=== PATIENT | female | born 1975 | race Caucasian/White ===

== ENCOUNTER 2017-11-12 11:41 | Emergency (ER) | payer BC ==
[~2017-11-12] VITALS: Ht 167.6 cm; Wt 113.4 kg
[~2017-11-12 11:41] MED LIST: AMYTRIPTILINE; GABAPENTIN
[2017-11-12 12:00] VITALS: BP_SYST 149
[2017-11-12] MEDS ORDERED: NACL 0.9% 1,000 ML IV ONE (12:11)
[2017-11-12] MEDS ORDERED: KETOROLAC TROMETHAMINE 30 MG VIAL IVP ONE (12:15)
[2017-11-12] MEDS ORDERED: MORPHINE 4 MG/ML INJ. SYRINGE IVP ONE (12:15)
[2017-11-12 12:21] LABS: BILIRUBIN,URINE NEGATIVE (NEGATIVE); BLOOD, URINE 2+ (NEGATIVE); CLARITY/URINE CLEAR (CLEAR); COLOR,URINE YELLOW (YELLOW); GLUCOSE,URINE NEGATIVE (NEGATIVE); KETONES,URINE NEGATIVE (NEGATIVE); LEUKOCYTE ESTERASE ,URINE NEGATIVE (NEGATIVE); NITRITE, URINE NEGATIVE (NEGATIVE); PROTEIN URINE NEGATIVE (NEGATIVE); UROBILINOGEN,URINE 0.2 (0.2-1.0)
[2017-11-12 12:38] LABS: BACTERIA,URINE FEW /HPF (None Seen); MUCUS,URINE 1+ /LPF (None Seen); WBC,URINE 0-3 /HPF (0-3)
[2017-11-12 12:38] LABS: BASOPHILS # (AUTO) 0.1 K/uL (0.0-0.2); BASOPHILS % (AUTO) 0.9 % (0.0-2.0); EOSINOPHILS # (AUTO) 0.2 K/uL (0.0-0.4); EOSINOPHILS % (AUTO) 2.1 % (0.0-4.0); HEMATOCRIT 46.8 % (36-48); HEMOGLOBIN 15.8 g/dL (12.0-16.0); LYMPHOCYTES % (AUTO) 36.8 % (20.5-51.5); MEAN CORPUSCULAR HEMOGLOBIN 29 pg (27-31); MEAN CORPUSCULAR HGB CONC 34 % (32-36); MEAN CORPUSCULAR VOLUME 86 fL (79.0-98.0); MONOCYTES # (AUTO) 0.6 K/uL (0.0-1.0); NEUTROPHILS # (AUTO) 4.1 K/uL (1.8-7.7); NEUTROPHILS % (AUTO) 53.2 % (40.0-70.0); PLATELET COUNT (AUTO) 221 K/uL (130-430); RED BLOOD CELL COUNT(AUTO) 5.43 MIL/uL (4.2-6.2); RED CELL DISTRIBUTION WIDTH 13.1 % (9.0-15.0)
[2017-11-12 12:50] LABS: CREATININE 0.74 mg/dL (0.55-1.30); POTASSIUM 4.3 mmol/L (3.5-5.1)
[2017-11-12 12:54] LABS: ALBUMIN 3.6 g/dL (3.4-4.8); TOTAL BILIRUBIN 0.3 mg/dL (0.0-1.0)
[2017-11-12 15:02] VITALS: BP_SYST 148
== END 2017-11-12 15:02 | disposition home or self-care (01) ==
LOC: SED 11:41
DX: R10.9 Unspecified abdominal pain (principal); N20.0 Calculus of kidney; R03.0 Elevated blood-pressure reading, without diagnosis of hypertension; Z90.49 Acquired absence of other specified parts of digestive tract
CPT/HCPCS: 36415; 71045; 74176; 80053; 81000; 81025; 82550; 83690; 84484; 85025; 85610; 85730; 93005; 96361; 96374; 96375; 99285; J1885; J2270; J7030

== ENCOUNTER 2018-03-11 13:01 | Emergency (ER) | payer BC ==
[~2018-03-11] VITALS: Ht 167.6 cm; Wt 127.0 kg
[2018-03-11 13:09] VITALS: BP_SYST 143
[2018-03-11 13:52] LABS: BILIRUBIN,URINE NEGATIVE (NEGATIVE); BLOOD, URINE NEGATIVE (NEGATIVE); CLARITY/URINE HAZY (CLEAR); COLOR,URINE YELLOW (YELLOW); GLUCOSE,URINE NEGATIVE (NEGATIVE); KETONES,URINE NEGATIVE (NEGATIVE); LEUKOCYTE ESTERASE ,URINE NEGATIVE (NEGATIVE); NITRITE, URINE NEGATIVE (NEGATIVE); PROTEIN URINE NEGATIVE (NEGATIVE); UROBILINOGEN,URINE 0.2 (0.2-1.0)
--- NOTE | 2018-03-11 14:30 | NUR ---
Placed in room 4. To gown for exam. Side rails up.
--- NOTE | 2018-03-11 14:50 | NUR ---
Pt presents to ER c/o L flank pain 7/10 on pain scale and dysuria. Pt denies any other symptoms. Pt in no acute distress, speaking full sentences, respirations even and unlabored, AOX4, ambulatory. - chest pain, - sob, - nausea, - vomiting
--- NOTE | 2018-03-11 15:05 | NUR ---
ROBE Escobedo at bedside examining patient.
[2018-03-11] MEDS ORDERED: KETOROLAC TROMETHAMINE 30 MG VIAL IM ONE (15:15)
--- NOTE | 2018-03-11 15:19 | NUR ---
Pt medicated as ordered by Bogdan CAPUTO. Pt tolerated well; will continue to monitor.
[2018-03-11 15:33] LABS: BASOPHILS # (AUTO) 0.2 K/uL (0.0-0.2); BASOPHILS % (AUTO) 1.7 % (0.0-2.0); EOSINOPHILS # (AUTO) 0.2 K/uL (0.0-0.4); EOSINOPHILS % (AUTO) 2.2 % (0.0-4.0); HEMATOCRIT 46.4 % (36-48); HEMOGLOBIN 15.4 g/dL (12.0-16.0); LYMPHOCYTES # (AUTO) 3.4 K/uL (1.0-5.5); LYMPHOCYTES % (AUTO) 35.9 % (20.5-51.5); MEAN CORPUSCULAR HEMOGLOBIN 29 pg (27-31); MEAN CORPUSCULAR HGB CONC 33 % (32-36); MEAN CORPUSCULAR VOLUME 88 fL (79.0-98.0); MONOCYTES # (AUTO) 0.6 K/uL (0.0-1.0); MONOCYTES % (AUTO) 6.7 % (1.7-9.3); NEUTROPHILS % (AUTO) 53.5 % (40.0-70.0); PLATELET COUNT (AUTO) 218 K/uL (130-430); RED BLOOD CELL COUNT(AUTO) 5.28 MIL/uL (4.2-6.2); RED CELL DISTRIBUTION WIDTH 12.9 % (9.0-15.0); WHITE BLOOD COUNT (AUTO) 9.4 K/uL (4.8-10.8)
[2018-03-11 15:39] LABS: CALCIUM 9.3 mg/dL (8.4-11.0); CREATININE 0.64 mg/dL (0.55-1.30); POTASSIUM 4.1 mmol/L (3.5-5.1)
[2018-03-11 15:44] LABS: ALBUMIN 3.7 g/dL (3.4-4.8); TOTAL BILIRUBIN 0.4 mg/dL (0.0-1.0)
--- NOTE | 2018-03-11 15:50 | NUR ---
Ultrasound at bedside.
--- NOTE | 2018-03-11 16:30 | NUR ---
Pt resting on gurney, no signs of distress, will continue to monitor.
--- NOTE | 2018-03-11 16:45 | NUR ---
ROBE Escobedo at bedside speaking with pt and family.
--- NOTE | 2018-03-11 17:05 | NUR ---
Pt left prior to discharge instructions and Rx given. Bogdan CAPUTO notified and aware of situation. Attempted to contact and emergency contacts listed on pt's chart but no answer.
== END 2018-03-11 17:05 | disposition home or self-care (01) ==
LOC: SED 13:01
DX: R10.9 Unspecified abdominal pain (principal); R03.0 Elevated blood-pressure reading, without diagnosis of hypertension; Z90.49 Acquired absence of other specified parts of digestive tract
CPT/HCPCS: 36415; 76770; 80053; 81003; 85025; 87086; 96372; 99285; J1885; 87186-TC

== ENCOUNTER 2018-10-19 12:35 | Emergency (ER) | payer BC ==
[~2018-10-19] VITALS: Ht 167.6 cm; Wt 113.4 kg
[2018-10-19 12:47] VITALS: BP_SYST 144
[2018-10-19 13:21] LABS: BASOPHILS # (AUTO) 0.1 K/uL (0.0-0.2); EOSINOPHILS # (AUTO) 0.2 K/uL (0.0-0.4); EOSINOPHILS % (AUTO) 1.9 % (0.0-4.0); HEMATOCRIT 44.9 % (36-48); HEMOGLOBIN 15.2 g/dL (12.0-16.0); LYMPHOCYTES # (AUTO) 2.8 K/uL (1.0-5.5); LYMPHOCYTES % (AUTO) 33.2 % (20.5-51.5); MEAN CORPUSCULAR HEMOGLOBIN 30 pg (27-31); MEAN CORPUSCULAR HGB CONC 34 % (32-36); MEAN CORPUSCULAR VOLUME 87 fL (79.0-98.0); MONOCYTES # (AUTO) 0.6 K/uL (0.0-1.0); MONOCYTES % (AUTO) 6.7 % (1.7-9.3); NEUTROPHILS # (AUTO) 4.8 K/uL (1.8-7.7); NEUTROPHILS % (AUTO) 57.2 % (40.0-70.0); PLATELET COUNT (AUTO) 205 K/uL (130-430); RED BLOOD CELL COUNT(AUTO) 5.15 MIL/uL (4.2-6.2); RED CELL DISTRIBUTION WIDTH 13.7 % (9.0-15.0); WHITE BLOOD COUNT (AUTO) 8.5 K/uL (4.8-10.8)
[2018-10-19 13:43] LABS: ANION GAP 8 (5-15); CALCIUM 8.8 mg/dL (8.4-11.0); CHLORIDE 105 mmol/L (98-107); CREATININE 0.83 mg/dL (0.55-1.30); GLUCOSE 120 mg/dL (70-99); POTASSIUM 3.9 mmol/L (3.5-5.1); SODIUM SERUM 138 mmol/L (136-145); UREA NITROGEN, BLOOD 11 mg/dL (8-21)
[2018-10-19 13:49] LABS: GFR AFRICAN AMERICAN 96 mL/min (>90)
[2018-10-19 13:57] LABS: ALANINE AMINOTRANSFERASE 91 U/L (12-78); ALBUMIN 3.4 g/dL (3.4-4.8); ASPARTATE AMINOTRANSFERASE 46 U/L (10-37); TOTAL BILIRUBIN 0.6 mg/dL (0.0-1.0)
[2018-10-19 14:13] LABS: PROTHROMBIN TIME 9.8 SECS (9.5-12.5)
--- NOTE | 2018-10-19 15:16 | NUR ---
Called patient x1 , no answer
--- NOTE | 2018-10-19 15:30 | NUR ---
Called for patient, unable to locate.
--- NOTE | 2018-10-19 15:45 | NUR ---
Called for patient, unable to locate. Patient presumed to have left without been seen.
== END 2018-10-19 15:45 | disposition left against medical advice (07) ==
LOC: SED 12:35
DX: R07.89 Other chest pain (principal); Z53.21 Procedure and treatment not carried out due to patient leaving prior to being seen by health care provider
CPT/HCPCS: 36415; 71046-TC; 80053; 84484; 85025; 85610-TC; 85730-TC; 93005; 99281

== ENCOUNTER 2018-10-19 19:15 | Emergency (ER) | payer BC ==
[~2018-10-19] VITALS: Ht 167.6 cm; Wt 113.4 kg
[2018-10-19 19:18] VITALS: BP_SYST 153
--- NOTE | 2018-10-19 19:20 | NUR ---
Patient to ER bed 06 to gown for evaluation. Side rails up.
--- NOTE | 2018-10-19 19:33 | NUR ---
Pt C/O substernal chest pain radiating to the left breast and to the back, worsening on inspiration as well as shortness of breath since yesterday. Pt states sudden onset of chest pain no trauma noted, denies N/V/D or any recent sickness. Was seen earlier today but left without being seen by MD. Will continue to monitor
--- NOTE | 2018-10-19 19:53 | NUR ---
ROBE Chaves at bedside examining patient.
[2018-10-19] MEDS ORDERED: KETOROLAC TROMETHAMINE 30 MG VIAL IM ONE (20:45)
--- NOTE | 2018-10-19 21:18 | NUR ---
Pt has been medication with Toradol IM for 8/10 chest pain. Urine Preg is negative. Will continue to monitor
[2018-10-19 21:50] VITALS: BP_SYST 153
--- NOTE | 2018-10-19 21:50 | NUR ---
Pt left without discharge paperwork. Given verbal discharge instructions by Dr. Chaves
== END 2018-10-19 21:50 | disposition home or self-care (01) ==
LOC: SED 19:15
DX: M94.0 Chondrocostal junction syndrome [Tietze] (principal); Z53.20 Procedure and treatment not carried out because of patient's decision for unspecified reasons; Z87.442 Personal history of urinary calculi
CPT/HCPCS: 36415; 81025; 84484; 96372; 99283; J1885

== ENCOUNTER 2021-03-14 16:14 | Emergency (ER) | payer BC ==
[~2021-03-14] VITALS: Ht 167.6 cm; Wt 113.4 kg
[2021-03-14 16:15] VITALS: BP_SYST 144
[2021-03-14] MEDS ORDERED: KETOROLAC TROMETHAMINE 60 MG/2 ML VIAL IM ONE (16:30)
[2021-03-14 17:17] LABS: CREATININE 0.93 mg/dL (0.55-1.30); POTASSIUM 3.8 mmol/L (3.5-5.1)
[2021-03-14 17:19] LABS: HEMATOCRIT 42.2 % (36-48); HEMOGLOBIN 14.5 g/dL (12.0-16.0); MEAN CORPUSCULAR HEMOGLOBIN 30 pg (27-31); MEAN CORPUSCULAR VOLUME 88 fL (79.0-98.0); RED BLOOD CELL COUNT(AUTO) 4.82 MIL/uL (4.2-6.2); WHITE BLOOD COUNT (AUTO) 9.5 K/uL (4.8-10.8)
[2021-03-14 17:20] LABS: ALBUMIN 3.3 g/dL (3.4-4.8); BASOPHILS % (AUTO) 3.7 % (0.0-2.0); EOSINOPHILS % (AUTO) 1.4 % (0.0-4.0); LYMPHOCYTES % (AUTO) 27.2 % (20.5-51.5); MEAN CORPUSCULAR HGB CONC 34 % (32-36); MONOCYTES % (AUTO) 8.4 % (1.7-9.3); NEUTROPHILS % (AUTO) 59.3 % (40.0-70.0); PLATELET COUNT (AUTO) 178 K/uL (130-430); RED CELL DISTRIBUTION WIDTH 13.7 % (9.0-15.0); TOTAL BILIRUBIN 0.3 mg/dL (0.0-1.0)
[2021-03-14 17:21] LABS: BASOPHILS # (AUTO) 0.3 K/uL (0.0-0.2); EOSINOPHILS # (AUTO) 0.1 K/uL (0.0-0.4); LYMPHOCYTES # (AUTO) 2.6 K/uL (1.0-5.5); MONOCYTES # (AUTO) 0.8 K/uL (0.0-1.0); NEUTROPHILS # (AUTO) 5.6 K/uL (1.8-7.7)
[2021-03-14 17:23] LABS: INR 0.9 (0.8-1.2); PROTHROMBIN TIME 9.9 SECS (9.5-12.5)
[2021-03-14] MEDS ORDERED: MORPHINE 4 MG INJ. 4 MG/ML VIAL IM ONE (17:30)
[2021-03-14 17:37] LABS: C-REACTIVE PROTEIN QUANT 0.6 mg/dL (0-0.5)
[2021-03-14 17:41] LABS: BILIRUBIN,URINE NEGATIVE (NEGATIVE); BLOOD, URINE NEGATIVE (NEGATIVE); COLOR,URINE YELLOW (YELLOW); GLUCOSE,URINE NEGATIVE (NEGATIVE); KETONES,URINE NEGATIVE (NEGATIVE); LEUKOCYTE ESTERASE ,URINE NEGATIVE (NEGATIVE); NITRITE, URINE NEGATIVE (NEGATIVE); PROTEIN URINE NEGATIVE (NEGATIVE); UROBILINOGEN,URINE 0.2 (0.2-1.0)
[2021-03-14 18:16] LABS: CLARITY/URINE SLIGHTLY HAZY (CLEAR)
[2021-03-14] MEDS ORDERED: HYDR-3917 PO (18:59)
[2021-03-14] MEDS ORDERED: IBUP-1971 PO (18:59)
[2021-03-14 19:05] VITALS: BP_SYST 137
== END 2021-03-14 19:05 | disposition home or self-care (01) ==
LOC: SED 16:14
DX: R10.9 Unspecified abdominal pain (principal)
CPT/HCPCS: 36415; 74176; 76376; 80053; 81003; 81025; 82150; 83690; 84703; 85025; 85610; 85730; 86140; 96372; 99284; J1885; J2270

== ENCOUNTER 2021-05-13 13:01 | Emergency (ER) | payer BC ==
[~2021-05-13] VITALS: Ht 167.6 cm; Wt 131.5 kg
[2021-05-13 13:01] VITALS: BP_SYST 147
[~2021-05-13 13:01] MED LIST changes: +HYDR-3917 PO; +IBUP-1971 PO
--- NOTE | 2021-05-13 13:01 | NUR ---
BROUGHT BACK TO BED #8 AND TRIAGED, REPORT GIVEN TO BRENNAN
--- NOTE | 2021-05-13 13:05 | NUR ---
Pt walked in to ER with c/o abdominal pain 10/ ever since she hurt her back last month. States she feels "burning and tearing". Denies any fevers, n/v at this time. V/S stable, no acute distress noted.
--- NOTE | 2021-05-13 13:15 | NUR ---
ER Dr. Horn at bedside examining patient.
[2021-05-13] MEDS ORDERED: KETOROLAC TROMETHAMINE 60 MG/2 ML VIAL IM ONE ×2 (13:29→13:30)
[2021-05-13] MEDS ORDERED: HYDROcodone/ACETAMIN 10-325 MG TAB PO ONE (13:30)
--- NOTE | 2021-05-13 13:40 | NUR ---
Patient transported to radiology via wheelchair, accompanied by staff.
[2021-05-13 13:54] LABS: BILIRUBIN,URINE NEGATIVE (NEGATIVE); BLOOD, URINE NEGATIVE (NEGATIVE); CLARITY/URINE CLEAR (CLEAR); COLOR,URINE YELLOW (YELLOW); GLUCOSE,URINE NEGATIVE (NEGATIVE); KETONES,URINE NEGATIVE (NEGATIVE); LEUKOCYTE ESTERASE ,URINE NEGATIVE (NEGATIVE); NITRITE, URINE NEGATIVE (NEGATIVE); PROTEIN URINE NEGATIVE (NEGATIVE); UROBILINOGEN,URINE 0.2 (0.2-1.0)
[2021-05-13 14:00] LABS: BASOPHILS # (AUTO) 0.1 K/uL (0.0-0.2); BASOPHILS % (AUTO) 0.7 % (0.0-2.0); EOSINOPHILS # (AUTO) 0.1 K/uL (0.0-0.4); EOSINOPHILS % (AUTO) 1.6 % (0.0-4.0); HEMATOCRIT 42.8 % (36-48); HEMOGLOBIN 14.7 g/dL (12.0-16.0); LYMPHOCYTES # (AUTO) 2.8 K/uL (1.0-5.5); LYMPHOCYTES % (AUTO) 36.5 % (20.5-51.5); MEAN CORPUSCULAR HEMOGLOBIN 30 pg (27-31); MEAN CORPUSCULAR HGB CONC 34 % (32-36); MEAN CORPUSCULAR VOLUME 87 fL (79.0-98.0); MONOCYTES # (AUTO) 0.5 K/uL (0.0-1.0); MONOCYTES % (AUTO) 6.7 % (1.7-9.3); NEUTROPHILS # (AUTO) 4.2 K/uL (1.8-7.7); NEUTROPHILS % (AUTO) 54.5 % (40.0-70.0); PLATELET COUNT (AUTO) 170 K/uL (130-430); RED BLOOD CELL COUNT(AUTO) 4.94 MIL/uL (4.2-6.2); RED CELL DISTRIBUTION WIDTH 14.1 % (9.0-15.0); WHITE BLOOD COUNT (AUTO) 7.7 K/uL (4.8-10.8)
[2021-05-13 14:01] LABS: CALCIUM 8.2 mg/dL (8.4-11.0); CREATININE 0.81 mg/dL (0.55-1.30); POTASSIUM 3.9 mmol/L (3.5-5.1)
[2021-05-13 14:04] LABS: INR 0.9 (0.8-1.2); PROTHROMBIN TIME 9.8 SECS (9.5-12.5)
[2021-05-13 14:06] LABS: ALBUMIN 3.4 g/dL (3.4-4.8); C-REACTIVE PROTEIN QUANT 0.4 mg/dL (0-0.5); TOTAL BILIRUBIN 0.2 mg/dL (0.0-1.0)
--- NOTE | 2021-05-13 16:00 | NUR ---
Ultrasound at bedside
[2021-05-13] MEDS ORDERED: PRED20TA PO (16:07)
[2021-05-13] MEDS ORDERED: LACT10SO6 PO (16:13)
[2021-05-13] MEDS ORDERED: POLY119P2 PO (16:13)
[2021-05-13] MEDS ORDERED: DOCU-159 PO (16:13)
[2021-05-13] MEDS ORDERED: predniSONE 20 MG TABLET PO ONE (18:00)
--- NOTE | 2021-05-13 18:00 | NUR ---
Patient given written and verbal discharge instructions and verbalizes understanding. ER MD discussed with patient the results and treatment provided. Patient in stable condition. ID arm band removed. Rx of Prednisone, colace, lactulose and miralax given. Patient educated on pain management and to follow up with PMD. Pain Scale 0. Opportunity for questions provided and answered. Medication side effect fact sheet provided.
[2021-05-13 18:03] VITALS: BP_SYST 147
== END 2021-05-13 18:00 | disposition home or self-care (01) ==
LOC: SED 13:01
DX: N83.8 Other noninflammatory disorders of ovary, fallopian tube and broad ligament (principal); Z79.899 Other long term (current) drug therapy
CPT/HCPCS: 36415; 72131; 74176; 76376; 76830; 76857; 80053; 81003; 81025; 82150; 83605; 83690; 84703; 85025; 85610; 85730; 86140; 96372; 99284; J1885; J7512

== ENCOUNTER 2021-10-08 14:13 | Emergency (ER) | payer BC ==
[~2021-10-08] VITALS: Ht 167.6 cm; Wt 127.0 kg
[~2021-10-08 14:13] MED LIST changes: +DOCU-159 PO; +LACT10SO6 PO; +POLY119P2 PO; +PRED20TA PO
[2021-10-08 14:15] VITALS: BP_SYST 136
--- NOTE | 2021-10-08 14:30 | NUR ---
First contact with pt. Pt has cc of lower abdominal pain and frequent urine accompanied by fever, chills, and aches. Pt states that she was previously diagnosed with a urine infection and was given ciprofloxacin. Pt edorsed finishing medications but notes that she has had no relief fro symptoms. Pt is AxO x4, GCS 15, skin is pink, warm, and dry. Resp e/u, NADN. Awaiting evaluation anf furhter orders.
[2021-10-08] MEDS ORDERED: KETOROLAC TROMETHAMINE 60 MG/2 ML VIAL IM ONE (14:45)
[2021-10-08 14:49] VITALS: BP_SYST 136
[2021-10-08 15:32] LABS: BILIRUBIN,URINE NEGATIVE (NEGATIVE); BLOOD, URINE 1+ (NEGATIVE); CLARITY/URINE CLEAR (CLEAR); COLOR,URINE YELLOW (YELLOW); GLUCOSE,URINE NEGATIVE (NEGATIVE); KETONES,URINE NEGATIVE (NEGATIVE); LEUKOCYTE ESTERASE ,URINE 1+ (NEGATIVE); NITRITE, URINE NEGATIVE (NEGATIVE); PROTEIN URINE NEGATIVE (NEGATIVE); UROBILINOGEN,URINE 0.2 (0.2-1.0)
--- NOTE | 2021-10-08 15:33 | NUR ---
Note aldania in EDM - 10/08/21 at 1733 by BEN # 20 gauge angiocath placed to right ac. Use of asceptic technique. Opsite placed over site. Blood return noted. Blood for lab drawn from site. Flushed with 10 cc of normal saline. No evidence of infiltration noted. Patient tolerated well.
[2021-10-08 15:39] LABS: BACTERIA,URINE FEW /HPF (None Seen); MUCUS,URINE None Seen /LPF (None Seen)
[2021-10-08 16:00] LABS: BASOPHILS # (AUTO) 0.1 K/uL (0.0-0.2); BASOPHILS % (AUTO) 0.8 % (0.0-2.0); CALCIUM 9.2 mg/dL (8.4-11.0); CREATININE 0.88 mg/dL (0.55-1.30); EOSINOPHILS # (AUTO) 0.1 K/uL (0.0-0.4); EOSINOPHILS % (AUTO) 1.6 % (0.0-4.0); HEMATOCRIT 44.7 % (36-48); HEMOGLOBIN 14.9 g/dL (12.0-16.0); LYMPHOCYTES # (AUTO) 2.7 K/uL (1.0-5.5); LYMPHOCYTES % (AUTO) 36.8 % (20.5-51.5); MEAN CORPUSCULAR HEMOGLOBIN 29 pg (27-31); MEAN CORPUSCULAR HGB CONC 33 % (32-36); MEAN CORPUSCULAR VOLUME 87 fL (79.0-98.0); MONOCYTES # (AUTO) 0.3 K/uL (0.0-1.0); MONOCYTES % (AUTO) 4.6 % (1.7-9.3); NEUTROPHILS # (AUTO) 4.1 K/uL (1.8-7.7); NEUTROPHILS % (AUTO) 56.2 % (40.0-70.0); PLATELET COUNT (AUTO) 177 K/uL (130-430); POTASSIUM 3.8 mmol/L (3.5-5.1); RED BLOOD CELL COUNT(AUTO) 5.11 MIL/uL (4.2-6.2); RED CELL DISTRIBUTION WIDTH 14.4 % (9.0-15.0); WHITE BLOOD COUNT (AUTO) 7.2 K/uL (4.8-10.8)
[2021-10-08 16:05] LABS: ALBUMIN 3.4 g/dL (3.4-4.8); TOTAL BILIRUBIN 0.4 mg/dL (0.0-1.0)
[2021-10-08 16:10] LABS: C-REACTIVE PROTEIN QUANT 1.1 mg/dL (0-0.5)
[2021-10-08] MEDS ORDERED: IBUP-1969 PO (16:24)
[2021-10-08] MEDS ORDERED: NITR-85 PO (16:24)
--- NOTE | 2021-10-08 16:27 | NUR ---
Provider at bedside.
[2021-10-08] MEDS ORDERED: CEPH250C PO (17:07)
[2021-10-08 17:23] VITALS: BP_SYST 149
--- NOTE | 2021-10-08 17:25 | NUR ---
Patient given written and verbal discharge instructions and verbalizes understanding. ER MD discussed with patient the results and treatment provided. Patient in stable condition. ID arm band removed. Rx of Keflex and ibuprofen given. Patient educated on pain management and to follow up with PMD. Pain Scale 2/10 Opportunity for questions provided and answered. Medication side effect fact sheet provided.
== END 2021-10-08 17:23 | disposition home or self-care (01) ==
LOC: SED 14:13
DX: N12 Tubulo-interstitial nephritis, not specified as acute or chronic (principal); Z79.899 Other long term (current) drug therapy
CPT/HCPCS: 36415; 71045; 74176; 76376; 80053; 81000; 81025; 84703; 85025; 86140; 87086; 96372; 99285; J1885

== ENCOUNTER 2021-12-01 14:28 | Emergency (ER) | payer BC ==
[~2021-12-01] VITALS: Ht 167.6 cm; Wt 127.0 kg
[~2021-12-01 14:28] MED LIST changes: +CEPH250C PO; +IBUP-1969 PO
[2021-12-01 14:59] VITALS: BP_SYST 162
--- NOTE | 2021-12-01 15:08 | NUR ---
Patient to ER bed 3 to gown for evaluation. Side rails up. Report given to Iliana.
--- NOTE | 2021-12-01 15:09 | NUR ---
DR BOGGS AT BEDSIDE FOR EVALUATION
--- NOTE | 2021-12-01 15:20 | NUR ---
INITIAL CONTACT MADE W/PATIENT. AAOX4 FROM HOME C/O LEFT FLANK PAIN X 1 MONTH. STATED HAS HAD UTI AND BEEN TAKING DIFFERENT ABTX WITH THE SAME PAIN. CURRENTLY STATING HAVING 5/10 ON THE PAIN SCALE. STATED NOTED HAVING DARK URINE AND PAIN TO LOWER ABDOMEN WHEN PEEING.
--- NOTE | 2021-12-01 15:43 | NUR ---
Patient transported to radiology via AMBULATION, accompanied by STAFF.
[2021-12-01 16:02] LABS: BILIRUBIN,URINE NEGATIVE (NEGATIVE); BLOOD, URINE 3+ (NEGATIVE); CLARITY/URINE CLOUDY (CLEAR); COLOR,URINE YELLOW (YELLOW); GLUCOSE,URINE NEGATIVE (NEGATIVE); KETONES,URINE NEGATIVE (NEGATIVE); LEUKOCYTE ESTERASE ,URINE NEGATIVE (NEGATIVE); NITRITE, URINE NEGATIVE (NEGATIVE); PROTEIN URINE TRACE (NEGATIVE)
[2021-12-01 16:06] LABS: BACTERIA,URINE FEW /HPF (None Seen); RBC,URINE 20-50 /HPF (0-3); WBC,URINE 0-3 /HPF (0-3)
[2021-12-01 16:21] LABS: BASOPHILS # (AUTO) 0.1 K/uL (0.0-0.2); EOSINOPHILS # (AUTO) 0.1 K/uL (0.0-0.4); EOSINOPHILS % (AUTO) 1.9 % (0.0-4.0); HEMATOCRIT 41.8 % (36-48); HEMOGLOBIN 14.4 g/dL (12.0-16.0); LYMPHOCYTES # (AUTO) 2.7 K/uL (1.0-5.5); LYMPHOCYTES % (AUTO) 38.8 % (20.5-51.5); MEAN CORPUSCULAR HEMOGLOBIN 30 pg (27-31); MEAN CORPUSCULAR HGB CONC 35 % (32-36); MEAN CORPUSCULAR VOLUME 86 fL (79.0-98.0); MONOCYTES # (AUTO) 0.5 K/uL (0.0-1.0); MONOCYTES % (AUTO) 6.6 % (1.7-9.3); NEUTROPHILS # (AUTO) 3.5 K/uL (1.8-7.7); NEUTROPHILS % (AUTO) 51.7 % (40.0-70.0); PLATELET COUNT (AUTO) 166 K/uL (130-430); RED BLOOD CELL COUNT(AUTO) 4.85 MIL/uL (4.2-6.2); WHITE BLOOD COUNT (AUTO) 6.8 K/uL (4.8-10.8)
[2021-12-01 16:31] LABS: CALCIUM 8.4 mg/dL (8.4-11.0); CREATININE 0.88 mg/dL (0.55-1.30); POTASSIUM 3.9 mmol/L (3.5-5.1)
[2021-12-01 16:36] LABS: TOTAL BILIRUBIN 0.4 mg/dL (0.0-1.0)
[2021-12-01 18:06] VITALS: BP_SYST 162
--- NOTE | 2021-12-01 18:07 | NUR ---
Patient given written and verbal discharge instructions and verbalizes understanding. DR.JANOO ROBE TORRES discussed with patient the results and treatment provided. Patient in stable condition. ID arm band removed. Patient educated on pain management and to follow up with PMD. Pain Scale 0/10 Opportunity for questions provided and answered. Medication side effect fact sheet provided.
== END 2021-12-01 18:07 | disposition home or self-care (01) ==
LOC: SED 14:28
DX: R31.9 Hematuria, unspecified (principal); R10.30 Lower abdominal pain, unspecified; R74.01 Elevation of levels of liver transaminase levels; Z87.442 Personal history of urinary calculi; Z79.899 Other long term (current) drug therapy
CPT/HCPCS: 36415; 76376; 80053; 81000; 81025; 85025; 99284

== ENCOUNTER 2022-01-23 13:47 | Emergency (ER) | payer BC ==
[~2022-01-23] VITALS: Ht 167.6 cm; Wt 127.0 kg
[2022-01-23 13:51] VITALS: BP_SYST 154
--- NOTE | 2022-01-23 14:25 | NUR ---
ERMD AT BEDSIDE AT THIS TIME
[2022-01-23 14:42] LABS: BASOPHILS # (AUTO) 0.1 K/uL (0.0-0.2); EOSINOPHILS # (AUTO) 0.2 K/uL (0.0-0.4); EOSINOPHILS % (AUTO) 1.9 % (0.0-4.0); HEMATOCRIT 45.8 % (36-48); HEMOGLOBIN 15.7 g/dL (12.0-16.0); LYMPHOCYTES % (AUTO) 34.9 % (20.5-51.5); MEAN CORPUSCULAR HEMOGLOBIN 30 pg (27-31); MEAN CORPUSCULAR HGB CONC 34 % (32-36); MEAN CORPUSCULAR VOLUME 87 fL (79.0-98.0); MONOCYTES # (AUTO) 0.5 K/uL (0.0-1.0); MONOCYTES % (AUTO) 5.8 % (1.7-9.3); NEUTROPHILS # (AUTO) 4.9 K/uL (1.8-7.7); NEUTROPHILS % (AUTO) 56.4 % (40.0-70.0); PLATELET COUNT (AUTO) 174 K/uL (130-430); RED BLOOD CELL COUNT(AUTO) 5.29 MIL/uL (4.2-6.2); RED CELL DISTRIBUTION WIDTH 14.2 % (9.0-15.0); WHITE BLOOD COUNT (AUTO) 8.6 K/uL (4.8-10.8)
[2022-01-23 14:53] LABS: CREATININE 0.78 mg/dL (0.55-1.30); POTASSIUM 4.3 mmol/L (3.5-5.1)
[2022-01-23 14:59] LABS: ALBUMIN 3.3 g/dL (3.4-4.8); C-REACTIVE PROTEIN QUANT 0.4 mg/dL (0-0.5); TOTAL BILIRUBIN 0.6 mg/dL (0.0-1.0)
[2022-01-23 15:14] LABS: BILIRUBIN,URINE NEGATIVE (NEGATIVE); CLARITY/URINE CLEAR (CLEAR); COLOR,URINE YELLOW (YELLOW); GLUCOSE,URINE NEGATIVE (NEGATIVE); KETONES,URINE NEGATIVE (NEGATIVE); LEUKOCYTE ESTERASE ,URINE NEGATIVE (NEGATIVE); NITRITE, URINE NEGATIVE (NEGATIVE); PROTEIN URINE NEGATIVE (NEGATIVE); UROBILINOGEN,URINE 0.2 (0.2-1.0)
[2022-01-23 15:15] LABS: BLOOD, URINE TRACE (NEGATIVE)
[2022-01-23 15:19] LABS: BACTERIA,URINE FEW /HPF (None Seen); MUCUS,URINE None Seen /LPF (None Seen); RBC,URINE 0-3 /HPF (0-3); WBC,URINE 0-3 /HPF (0-3)
[2022-01-23] MEDS ORDERED: PHEN-726 PO (15:30)
[2022-01-23] MEDS ORDERED: NITR-85 PO (15:30)
--- NOTE | 2022-01-23 15:49 | NUR ---
A/OX4 VSS VERBALIZED UNDERSTANDING OF DC INSTRUCTIONS, ALL QUESTIONS ANSWERED, AMBULATED WITH STEADY GAIT
== END 2022-01-23 15:50 | disposition home or self-care (01) ==
LOC: SED 13:47
DX: R30.0 Dysuria (principal); R35.0 Frequency of micturition; R10.30 Lower abdominal pain, unspecified; Z87.440 Personal history of urinary (tract) infections; Z79.899 Other long term (current) drug therapy
CPT/HCPCS: 36415; 80053; 81000; 81025; 82150; 83605; 83690; 84703; 85025; 86140; 99283

== ENCOUNTER 2022-09-25 04:34 | Emergency (ER) | payer BC ==
[~2022-09-25] VITALS: Ht 167.6 cm; Wt 133.8 kg
[~2022-09-25 04:34] MED LIST changes: +NITR-85 PO; +PHEN-726 PO
[2022-09-25 04:40] VITALS: BP_SYST 144
--- NOTE | 2022-09-25 04:40 | NUR ---
Triaged and placed patient in ER bed 5 for evaluation. Report given to Fawn RODRIGUEZ for continuity of care. VSS, no acute respiratory distress noted at this time. Instructed to notify ED staff for any changes in condition or worsening of symptoms. Patient verbalized understanding.
--- NOTE | 2022-09-25 04:50 | NUR ---
Pt is noted alert, responsive as she came from home C/O Lower Back painthat started since 09/17/22 with Nausea. Pt care continue as awaist .
--- NOTE | 2022-09-25 05:40 | NUR ---
noted at bedside. Pt care continue.
[2022-09-25] MEDS ORDERED: KETOROLAC TROMETHAMINE 60 MG/2 ML VIAL IM ONE (06:15)
[2022-09-25] MEDS ORDERED: MORPHINE 4 MG INJ. 4 MG/ML VIAL IM ONE (06:15)
--- NOTE | 2022-09-25 06:16 | NUR ---
Pt care continue as urine collected for Lab and she is been medicated with Morphine 4mg IM and Toradol 60mg IM as ordered. Breana care continue.
[2022-09-25] MEDS ORDERED: IBUP-1971 PO (06:43)
[2022-09-25] MEDS ORDERED: OXYC-128 PO (06:43)
[2022-09-25 06:55] VITALS: BP_SYST 132
--- NOTE | 2022-09-25 06:59 | NUR ---
Pt remain alertnad responsive as she is been diacharge to home with all discharge instructions given with no S/S off distress .
[2022-09-25 09:22] LABS: BILIRUBIN,URINE NEGATIVE (NEGATIVE); BLOOD, URINE 1+ (NEGATIVE); CLARITY/URINE CLEAR (CLEAR); COLOR,URINE YELLOW (YELLOW); GLUCOSE,URINE NEGATIVE (NEGATIVE); KETONES,URINE TRACE (NEGATIVE); LEUKOCYTE ESTERASE ,URINE NEGATIVE (NEGATIVE); NITRITE, URINE NEGATIVE (NEGATIVE); PROTEIN URINE NEGATIVE (NEGATIVE)
[2022-09-25 10:10] LABS: BACTERIA,URINE RARE /HPF (None Seen); WBC,URINE 0-3 /HPF (0-3)
== END 2022-09-25 06:55 | disposition home or self-care (01) ==
LOC: SED 04:34
DX: M54.50 Low back pain, unspecified (principal); G89.29 Other chronic pain; Z79.899 Other long term (current) drug therapy
CPT/HCPCS: 99284; 81000; 96372; J1885; J2270

== ENCOUNTER 2022-10-27 21:33 | Emergency (ER) | payer BC ==
[~2022-10-27] VITALS: Ht 167.6 cm; Wt 129.3 kg
[~2022-10-27 21:33] MED LIST changes: +OXYC-128 PO
[2022-10-27 21:43] VITALS: BP_SYST 188
--- NOTE | 2022-10-27 22:22 | NUR ---
Placed in room H1 . Placed on director of cardiac rehabilitation, blood pressure machine and pulse oximeter. To gown for exam. Side rails up.
--- NOTE | 2022-10-27 22:23 | NUR ---
PT AA&OX4. AFEBRILE. NAD. AMBULATORY W/ STEADY GAIT. SAFE & HAZARD FREE ENVIRONMENT PROVIDED.
--- NOTE | 2022-10-27 22:23 | NUR ---
ER at bedside examining patient.
--- NOTE | 2022-10-27 22:27 | NUR ---
URINE PREG TEST= NEGATIVE
[2022-10-27] MEDS ORDERED: KETOROLAC TROMETHAMINE 30 MG VIAL IVP ONE (22:30)
[2022-10-27] MEDS ORDERED: NACL 0.9% 1,000 ML IV ONE (22:30)
--- NOTE | 2022-10-27 22:30 | NUR ---
# 20 gauge angiocath placed to RFA. Use of asceptic technique. Opsite placed over site. Blood return noted. Blood for lab drawn from site & PICKED UP BY DIRECTOR OF EXHIBIT DEVELOPMENT. Flushed with 10 cc of normal saline. No evidence of infiltration noted. Patient tolerated well.
[2022-10-27 22:36] LABS: BILIRUBIN,URINE NEGATIVE (NEGATIVE); BLOOD, URINE 3+ (NEGATIVE); CLARITY/URINE SL CLOUDY (CLEAR); COLOR,URINE YELLOW (YELLOW); GLUCOSE,URINE NEGATIVE (NEGATIVE); KETONES,URINE NEGATIVE (NEGATIVE); LEUKOCYTE ESTERASE ,URINE NEGATIVE (NEGATIVE); NITRITE, URINE NEGATIVE (NEGATIVE); PH,URINE 5.5 (5.0-8.0); PROTEIN URINE TRACE (NEGATIVE); UROBILINOGEN,URINE 0.2 (0.2-1.0)
[2022-10-27 23:03] LABS: BASOPHILS # (AUTO) 0.1 K/uL (0.0-0.2); EOSINOPHILS # (AUTO) 0.2 K/uL (0.0-0.4); EOSINOPHILS % (AUTO) 1.7 % (0.0-4.0); HEMATOCRIT 41.1 % (36-48); HEMOGLOBIN 13.9 g/dL (12.0-16.0); LYMPHOCYTES % (AUTO) 33.4 % (20.5-51.5); MEAN CORPUSCULAR HEMOGLOBIN 30 pg (27-31); MEAN CORPUSCULAR HGB CONC 34 % (32-36); MEAN CORPUSCULAR VOLUME 87 fL (79.0-98.0); MONOCYTES # (AUTO) 0.6 K/uL (0.0-1.0); MONOCYTES % (AUTO) 6.8 % (1.7-9.3); NEUTROPHILS # (AUTO) 5.2 K/uL (1.8-7.7); NEUTROPHILS % (AUTO) 57.1 % (40.0-70.0); PLATELET COUNT (AUTO) 157 K/uL (130-430); RED BLOOD CELL COUNT(AUTO) 4.71 MIL/uL (4.2-6.2); RED CELL DISTRIBUTION WIDTH 13.9 % (9.0-15.0); WHITE BLOOD COUNT (AUTO) 9.1 K/uL (4.8-10.8)
[2022-10-27 23:18] LABS: ALBUMIN 3.1 g/dL (3.4-4.8); CALCIUM 8.5 mg/dL (8.4-11.0); CREATININE 0.83 mg/dL (0.55-1.30); TOTAL BILIRUBIN 0.3 mg/dL (0.0-1.0)
[2022-10-27 23:39] LABS: BACTERIA,URINE FEW /HPF (None Seen); RBC,URINE 20-50 /HPF (0-3); WBC,URINE 0-3 /HPF (0-3)
--- NOTE | 2022-10-28 00:10 | NUR ---
Patient given written and verbal discharge instructions and verbalizes understanding. ER MD DR. RODRIGUEZ discussed with patient the results and treatment provided. Patient in stable condition. ID arm band removed. IV catheter removed intact and dressing applied, no active bleeding. Patient educated on pain management and to follow up with PMD. Pain Scale 0/10. Opportunity for questions provided and answered. Medication side effect fact sheet provided.
[2022-10-28 00:57] VITALS: BP_SYST 132
== END 2022-10-28 00:10 | disposition home or self-care (01) ==
LOC: SED 21:33
DX: N13.0 Hydronephrosis with ureteropelvic junction obstruction (principal); R10.9 Unspecified abdominal pain; R31.9 Hematuria, unspecified; Z79.899 Other long term (current) drug therapy
CPT/HCPCS: 99285; 74176; 96374; 96361; 80053; 81000; 85025; 36415; 76376; J1885; J7030

== ENCOUNTER 2023-05-26 18:59 | Emergency (ER) | payer BC ==
[~2023-05-26] VITALS: Ht 167.6 cm; Wt 127.0 kg
[2023-05-26 19:10] VITALS: BP_SYST 169; PULSE 89; RESP 16; TEMP 97.9; O2SAT 96
[2023-05-26] MEDS ORDERED: NABU-140 PO (19:16)
[2023-05-26 19:22] VITALS: BP_SYST 169; PULSE 89; RESP 16; TEMP 97.9; O2SAT 96
== END 2023-05-26 19:22 | disposition home or self-care (01) ==
LOC: SED 18:59
DX: S89.92XA Unspecified injury of left lower leg, initial encounter (principal); Z79.899 Other long term (current) drug therapy; X58.XXXA Exposure to other specified factors, initial encounter; Y93.89 Activity, other specified; Y92.89 Other specified places as the place of occurrence of the external cause; Y99.8 Other external cause status
CPT/HCPCS: 99283

== ENCOUNTER 2023-11-08 11:41 | Emergency (ER) | payer BC ==
[~2023-11-08] VITALS: Ht 177.8 cm; Wt 145.1 kg
[~2023-11-08 11:41] MED LIST changes: +NABU-140 PO
[2023-11-08 11:50] VITALS: BP_SYST 168; PULSE 85; RESP 18; TEMP 98.3; O2SAT 98
[2023-11-08 12:04] LABS: BILIRUBIN,URINE NEGATIVE (NEGATIVE); BLOOD, URINE 2+ (NEGATIVE); CLARITY/URINE CLEAR (CLEAR); COLOR,URINE YELLOW (YELLOW); GLUCOSE,URINE NEGATIVE (NEGATIVE); KETONES,URINE NEGATIVE (NEGATIVE); LEUKOCYTE ESTERASE ,URINE NEGATIVE (NEGATIVE); NITRITE, URINE NEGATIVE (NEGATIVE); PH,URINE 6.5 (5.0-8.0); PROTEIN URINE NEGATIVE (NEGATIVE); UROBILINOGEN,URINE 0.2 (0.2-1.0)
[2023-11-08 12:09] LABS: BASOPHILS # (AUTO) 0.1 K/uL (0.0-0.2); EOSINOPHILS # (AUTO) 0.2 K/uL (0.0-0.4); EOSINOPHILS % (AUTO) 1.6 % (0.0-4.0); HEMATOCRIT 45.2 % (36-48); HEMOGLOBIN 15.6 g/dL (12.0-16.0); LYMPHOCYTES # (AUTO) 3.2 K/uL (1.0-5.5); LYMPHOCYTES % (AUTO) 30.3 % (20.5-51.5); MEAN CORPUSCULAR HEMOGLOBIN 30 pg (27-31); MEAN CORPUSCULAR HGB CONC 35 % (32-36); MEAN CORPUSCULAR VOLUME 88 fL (79.0-98.0); MONOCYTES # (AUTO) 0.8 K/uL (0.0-1.0); MONOCYTES % (AUTO) 7.5 % (1.7-9.3); NEUTROPHILS # (AUTO) 6.3 K/uL (1.8-7.7); NEUTROPHILS % (AUTO) 59.6 % (40.0-70.0); PLATELET COUNT (AUTO) 178 K/uL (130-430); RED BLOOD CELL COUNT(AUTO) 5.15 MIL/uL (4.2-6.2); RED CELL DISTRIBUTION WIDTH 14.1 % (9.0-15.0); WHITE BLOOD COUNT (AUTO) 10.5 K/uL (4.8-10.8)
[2023-11-08 12:18] LABS: BACTERIA,URINE RARE /HPF (None Seen); MUCUS,URINE 1+ /LPF (None Seen); RBC,URINE 0-3 /HPF (0-3); WBC,URINE 0-3 /HPF (0-3)
[2023-11-08 12:26] LABS: PROTHROMBIN TIME 10.6 SECS (9.5-12.5)
[2023-11-08 12:37] LABS: ALBUMIN 3.4 g/dL (3.4-4.8); BILIRUBIN,DIRECT 0.2 mg/dL (0.0-0.3); CALCIUM 8.9 mg/dL (8.4-11.0); CREATININE 0.9 mg/dL (0.55-1.30); POTASSIUM 4.2 mmol/L (3.5-5.1); TOTAL BILIRUBIN 0.7 mg/dL (0.0-1.0); TOTAL PROTEIN, SERUM 7.4 g/dL (6.4-8.3)
[2023-11-08] MEDS ORDERED: TAMS-11 PO (13:30)
[2023-11-08] MEDS: KETOROLAC TROMETHAMINE 60 MG/2 ML VIAL IM ONE (13:47)
[2023-11-08 13:50] VITALS: BP_SYST 145; PULSE 78; RESP 16; TEMP 97.8; O2SAT 99
[2023-11-08] MEDS ORDERED: 0.45% NACL 1,000 ML IV SCH (14:00)
[2023-11-08] MEDS ORDERED: cefTRIAXone 1 GM IVPB PREMIX 50 ML IV ONE (14:00)
[2023-11-08] MEDS ORDERED: LORazepam 2 MG/ML VIAL IVP PRN (14:00)
== END 2023-11-08 14:04 | disposition home or self-care (01) ==
LOC: SED 11:41
DX: N23 Unspecified renal colic (principal); R11.0 Nausea; R30.0 Dysuria
CPT/HCPCS: 99285; 74176; 80076; 80048; 81001; 82150; 83690; 85025; 85610; 85730; 36415; 81025; 96372; 83605; 82397; 81000; 81015; J1885

== ENCOUNTER 2023-11-12 17:48 | Emergency (ER) | payer BC ==
[~2023-11-12] VITALS: Ht 167.6 cm; Wt 136.1 kg
[~2023-11-12 17:48] MED LIST changes: +TAMS-11 PO
[2023-11-12 18:23] VITALS: BP_SYST 143; PULSE 98; RESP 18; TEMP 97.4; O2SAT 98
[2023-11-12 18:56] LABS: BILIRUBIN,URINE NEGATIVE (NEGATIVE); CLARITY/URINE CLEAR (CLEAR); COLOR,URINE YELLOW (YELLOW); GLUCOSE,URINE NEGATIVE (NEGATIVE); KETONES,URINE NEGATIVE (NEGATIVE); LEUKOCYTE ESTERASE ,URINE NEGATIVE (NEGATIVE); NITRITE, URINE NEGATIVE (NEGATIVE); PROTEIN URINE TRACE (NEGATIVE); UROBILINOGEN,URINE 0.2 (0.2-1.0)
[2023-11-12 19:00] LABS: BLOOD, URINE TRACE (NEGATIVE)
[2023-11-12] MEDS: cefTRIAXone 1 GM in LIDOCAINE 1%, 20 ML MDV 2.1 ML IM ONE (19:12)
[2023-11-12 19:13] LABS: RBC,URINE 0-3 /HPF (0-3)
[2023-11-12 19:14] LABS: BACTERIA,URINE FEW /HPF (None Seen); MUCUS,URINE None Seen /LPF (None Seen)
[2023-11-12] MEDS: KETOROLAC TROMETHAMINE 60 MG/2 ML VIAL IM ONE (19:24)
[2023-11-12] MEDS ORDERED: NITR-85 PO (19:29)
[2023-11-12] MEDS ORDERED: NAPR-1172 PO (19:33)
[2023-11-12] MEDS ORDERED: FLUC200T PO (19:41)
[2023-11-12 19:55] VITALS: BP_SYST 143; PULSE 98; RESP 18; TEMP 97.4; O2SAT 98
== END 2023-11-12 19:55 | disposition home or self-care (01) ==
LOC: SED 17:48
DX: N39.0 Urinary tract infection, site not specified (principal); R10.9 Unspecified abdominal pain; R30.0 Dysuria
CPT/HCPCS: 99284; 81001; 96372; 81000; 81015; J0696; J1885; J2001

== ENCOUNTER 2023-12-14 14:13 | Emergency (ER) | payer BC ==
[~2023-12-14] VITALS: Ht 167.6 cm; Wt 136.1 kg
[~2023-12-14 14:13] MED LIST changes: +FLUC200T PO; +NAPR-1172 PO
[2023-12-14 14:15] VITALS: BP_SYST 149; PULSE 91; RESP 18; TEMP 97.8; O2SAT 97
[2023-12-14 15:08] LABS: BASOPHILS # (AUTO) 0.1 K/uL (0.0-0.2); BASOPHILS % (AUTO) 0.8 % (0.0-2.0); EOSINOPHILS # (AUTO) 0.1 K/uL (0.0-0.4); EOSINOPHILS % (AUTO) 1.5 % (0.0-4.0); HEMATOCRIT 45.3 % (36-48); HEMOGLOBIN 15.8 g/dL (12.0-16.0); LYMPHOCYTES # (AUTO) 3.2 K/uL (1.0-5.5); LYMPHOCYTES % (AUTO) 35.8 % (20.5-51.5); MEAN CORPUSCULAR HEMOGLOBIN 30 pg (27-31); MEAN CORPUSCULAR HGB CONC 35 % (32-36); MEAN CORPUSCULAR VOLUME 87 fL (79.0-98.0); MONOCYTES # (AUTO) 0.6 K/uL (0.0-1.0); MONOCYTES % (AUTO) 6.4 % (1.7-9.3); NEUTROPHILS % (AUTO) 55.5 % (40.0-70.0); PLATELET COUNT (AUTO) 174 K/uL (130-430); RED CELL DISTRIBUTION WIDTH 14.2 % (9.0-15.0)
[2023-12-14 15:28] LABS: BILIRUBIN,URINE NEGATIVE (NEGATIVE); BLOOD, URINE 3+ (NEGATIVE); CLARITY/URINE SL CLOUDY (CLEAR); COLOR,URINE YELLOW (YELLOW); GLUCOSE,URINE NEGATIVE (NEGATIVE); KETONES,URINE NEGATIVE (NEGATIVE); LEUKOCYTE ESTERASE ,URINE TRACE (NEGATIVE); NITRITE, URINE NEGATIVE (NEGATIVE); PROTEIN URINE 1+ (NEGATIVE); UROBILINOGEN,URINE 0.2 (0.2-1.0)
[2023-12-14 15:46] LABS: CALCIUM 9.5 mg/dL (8.4-11.0); CREATININE 0.94 mg/dL (0.55-1.30)
[2023-12-14 15:51] LABS: RBC,URINE >100 /HPF (0-3)
[2023-12-14 15:52] LABS: BACTERIA,URINE RARE /HPF (None Seen); MUCUS,URINE 1+ /LPF (None Seen)
[2023-12-14 16:07] LABS: INR 1.1 (0.8-1.2); PROTHROMBIN TIME 10.9 SECS (9.5-12.5)
[2023-12-14] MEDS: KETOROLAC TROMETHAMINE 30 MG VIAL IVP ONE (17:38)
[2023-12-14] MEDS: NACL 0.9% 1,000 ML IV ONE (17:39)
[2023-12-14] MEDS ORDERED: TAMS-11 PO (19:09)
[2023-12-14] MEDS ORDERED: HYDR-3917 PO (19:09)
[2023-12-14] MEDS ORDERED: IBUP-1969 PO (19:09)
[2023-12-14 19:50] VITALS: BP_SYST 127; PULSE 80; RESP 18; TEMP 98.1; O2SAT 99
== END 2023-12-14 19:50 | disposition home or self-care (01) ==
LOC: SED 14:13
DX: N23 Unspecified renal colic (principal); R11.0 Nausea; R00.0 Tachycardia, unspecified; Z87.442 Personal history of urinary calculi; Z79.899 Other long term (current) drug therapy; Z79.2 Long term (current) use of antibiotics
CPT/HCPCS: 99285; 74176; 96374; 96361; 80048; 81001; 85025; 85610; 85730; 87040; 87086; 36415; 81025; 83605; J1885; J7030; 81000; 81015